=== PATIENT | female | born 1965 | race Caucasian/White ===

== ENCOUNTER 2019-08-05 14:35 | Outpatient (REF) | payer OTHER, SELFPAY ==
--- NOTE | 2019-08-05 13:50 | PAPFT_PTH ---
PATIENT: NEYDA VIERA LOC: [facility] U#:[id number] AGE/SX: 54/F ROOM: RE08/05/[address]: LONG Ross : 1965 BED: DIS: 08/05/2019 SPEC #: [id number] RECD: 08/05/19 18:32 STATUS: BARBARA REKemar #: [id number] DANNA: 08/05/19 13:[address]: Faina Dougherty DEPT: [facility] Cytology RECD BY: Christina Morales Tissues: 1 - CX/ENDOCX FOR PAP SMEARS Procedures: PAP THIN PREP/[facility] Screening HPV DNA PROBE Comments: [id number]
== END 2019-08-05 14:55 ==
LOC: LBN 14:35
PROVIDERS: Visit Provider Nurse Practitioner Family
DX: Z12.4 Encounter for screening for malignant neoplasm of cervix (principal); Z11.51 Encounter for screening for human papillomavirus (HPV)
CPT/HCPCS: 88142; 87624

== ENCOUNTER 2019-09-09 01:41 | Outpatient (CLI) | payer OTHER, SELFPAY ==
--- NOTE | 2019-09-09 09:30 | DI.MAMMO_ITS ---
EXAM: MG MAMMO SCREENING CLINICAL HISTORY: screening TECHNIQUE: Bilateral full field digital CC and MLO mammographic images were obtained with 3D tomosyn thesis and utilizing computer aided detection (CAD). COMPARISON: Film screen exam from 2002. FINDINGS: The breasts are composed of scattered fibroglandular densities, breast density category B. In the up per outer quadrant of the right breast, there is a circumscribed nodule measuring 11 millimeters in d iameter, which was not seen on the previous exam. Ultrasound is requested for further evaluation. T here are no suspicious calcifications in either breast. No masses are seen in the left breast. IMPRESSION: Left breast category 1, negative. Right breast category 0. Ultrasound is requested for further evaluation of a circumscribed nodule in the upper outer quadrant. BI-RADS Cat 0 - Assessment Incomplete: Need additional imaging evaluation BI-RADS Cat 1 - Negative Breast Density - Category B - Scattered areas of fibroglandular density
== END 2019-09-09 02:01 ==
PROVIDERS: Visit Provider Nurse Practitioner Family
DX: Z12.31 Encounter for screening mammogram for malignant neoplasm of breast (principal); R92.8 Other abnormal and inconclusive findings on diagnostic imaging of breast
CPT/HCPCS: 77063; 77067

== ENCOUNTER 2019-09-17 00:51 | Outpatient (CLI) | payer OTHER, SELFPAY ==
--- NOTE | 2019-09-17 10:31 | DI.US_ITS ---
EXAM: MG MAMMO UNI AND RT BREAST ULTRASOUND CLINICAL HISTORY: F/u mammo and ultrasound, ASYMMETRIC DENSITY TECHNIQUE: Additional images are interpreted according to the usual protocol including tomosynthesis and 2D imaging. COMPARISON: 2002 and . FINDINGS: Spot compression views with tomography were performed of the upper and outer aspect of the right reji ast for an area of circumscribed nodularity. This nodule persists on the additional views. It is of relatively low density and may represent an intra mammary lymph node versus a fibroadenolipoma. The re are no suspicious features. Right breast ultrasound: No cyst or solid mass was identified. Normal appearing lymph nodes were see n in the axilla. IMPRESSION: Circumscribed low density 12 millimeter nodule in the upper outer quadrant of the right breast has be nign features. BI-RADS Cat 3 - Probably Benign Finding: Recommend follow-up mammography in 6 months Breast density Category B.
== END 2019-09-17 01:11 ==
PROVIDERS: Visit Provider Nurse Practitioner Family
DX: Z12.31 Encounter for screening mammogram for malignant neoplasm of breast (principal); R92.8 Other abnormal and inconclusive findings on diagnostic imaging of breast; N63.11 Unspecified lump in the right breast, upper outer quadrant
CPT/HCPCS: 76642; 77063; 77067